=== PATIENT | female | born 1990 | race Caucasian/White ===

== ENCOUNTER 2017-03-25 20:32 | Emergency (ER) | payer MEDICAID, OTHER ==
[2017-03-25 20:34] VITALS: BMI 23.9
[2017-03-25 21:50] VITALS: BP 105/68; PULSE 67; RESP 16; TEMP 98.3; O2SAT 99
== END 2017-03-25 21:41 | disposition left against medical advice (07) ==
LOC: ED 20:32
DX: Z02.89 Encounter for other administrative examinations (principal); T81.30XA Disruption of wound, unspecified, initial encounter